=== PATIENT | male | born 1970 | race American Indian/Alaskan Native ===

== ENCOUNTER 2020-07-15 20:40 | Emergency (ER) | payer SELFPAY ==
[2020-07-15 22:00] LABS: Basophils % (Auto) 0.4 % (0.0-1.8); Eosinophils # (Auto) 0.2 K/mm3 (0.0-0.4); Eosinophils % (Auto) 2.1 % (0.0-4.3); Hematocrit 45.2 % (35.5-45.6); Hemoglobin 15.2 gm/dl (11.8-15.2); Lymphocytes # (Auto) 2.3 K/mm3 (1.2-5.4); Lymphocytes % (Auto) 21.7 % (13.4-35.0); Mean Corpuscular HGB Conc 34 % (32-34); Mean Corpuscular Volume 87 fl (84-94); Monocytes # (Auto) 0.5 K/mm3 (0.0-0.8); Monocytes % (Auto) 4.5 % (0.0-7.3); Platelet Count 197 K/mm3 (140-440); Red Blood Count 5.18 M/mm3 (3.65-5.03); Red Cell Distribution Width 13.1 % (13.2-15.2)
--- NOTE | 2020-07-15 22:13 | Emergency Department Report ---
ED Abdominal Pain HPI - General Chief Complaint: Abdominal Pain Stated Complaint: STOMACH PAIN Time Seen by Provider: 07/15/20 21:58 Source: patient, family Mode of arrival: Ambulatory Limitations: Language Barrier - History of Present Illness Initial Comments: Patient is a 50-year-old male who presents for abdominal pain 05/30 for 10 days. Pain is described as general lysed aching and burning. Patient denies history of renal stones, gall stones, Crohn's or ulcers denies smoking denies substance. Last bowel movement was normal yesterday. Last p.o. intake this afternoon without symptoms. Symptoms are exacerbated by nothing. Symptoms are relieved by nothing. MD Complaint: abdominal pain, flank pain Onset/Timin -: days(s) Location: diffuse Radiation: none Migration to: no migration Severity: moderate Severity scale (0 -10): 7 Quality: aching Consistency: constant Improves With: nothing Worsens With: nothing Associated Symptoms: denies: nausea, vomiting, diarrhea, fever, chills, constipation, dysuria, melena, anorexia - Related Data Previous Rx's Medication Instructions Recorded Last Taken Type Ondansetron [Zofran Odt] 4 mg PO Q8HR #12 tab.rapdis 07/16/20 Unknown Rx Allergies Allergy/AdvReac Type Severity Reaction Status Date / Time No Known Allergies Allergy Unverified 07/15/20 20:44 ED Review of Systems ROS: Stated complaint: STOMACH PAIN Other details as noted in HPI Constitutional: denies: chills, fever Eyes: denies: eye pain, eye discharge, vision change ENT: denies: ear pain, throat pain Respiratory: denies: cough, shortness of breath, wheezing Cardiovascular: denies: chest pain, palpitations Endocrine: no symptoms reported Gastrointestinal: abdominal pain. denies: nausea, vomiting, diarrhea, constipation, hematemesis, melena, hematochezia Genitourinary: denies: urgency, dysuria, frequency, hematuria Musculoskeletal: denies: back pain, joint swelling, arthralgia Skin: as per HPI Neurological: denies: headache, weakness, paresthesias Psychiatric: denies: anxiety, depression Hematological/Lymphatic: denies: easy bleeding, easy bruising ED Past Medical Hx - Past Medical History Previous Medical History?: No - Surgical History Past Surgical History?: No - Social History Smoking Status: Current Every Day Smoker Substance Use Type: None - Medications Home Medications: Home Medications Medication Instructions Recorded Confirmed Last Taken Type Ondansetron [Zofran Odt] 4 mg PO Q8HR #12 tab.rapdis 07/16/20 Unknown Rx ED Physical Exam - General Limitations: Language Barrier General appearance: alert, in no apparent distress - Head Head exam: Present: atraumatic, normocephalic - Eye Eye exam: Present: normal appearance, EOMI Pupils: Present: normal accommodation - ENT ENT exam: Present: mucous membranes moist - Neck Neck exam: Present: normal inspection, full ROM. Absent: tenderness - Respiratory Respiratory exam: Present: normal lung sounds bilaterally. Absent: respiratory distress, wheezes, stridor, chest wall tenderness - Cardiovascular Cardiovascular Exam: Present: regular rate, normal rhythm, normal heart sounds - GI/Abdominal GI/Abdominal exam: Present: distended, normal bowel sounds. Absent: tenderness, guarding, rebound, rigid, organomegaly, bruit, hernia - Expanded GI/Abdominal Exam Expanded GI/Abdominal exam: Absent: psoas sign, obturator sign, heel tap sign, Mireles's sign, Rovsing's sign, tenderness at Mcbur[place]'s Point, ascites - Rectal Rectal exam: Present: deferred - Extremities Exam Extremities exam: Present: normal inspection, full ROM, normal capillary refill. Absent: tenderness - Back Exam Back exam: Present: normal inspection, full ROM. Absent: tenderness, CVA tenderness (R), CVA tenderness (L), vertebral tenderness, rash noted - Neurological Exam Neurological exam: Present: alert, oriented X3, CN II-XII intact, normal gait - Psychiatric Psychiatric exam: Present: normal affect, normal mood - Skin Skin exam: Present: warm, dry, intact, normal color. Absent: rash ED Course Vital Signs 07/15/20 07/15/20 20:44 22:33 Temperature 98.4 F 98.9 F Pulse Rate 73 67 Respiratory 18 14 Rate Blood Pressure 144/78 Blood Pressure 115/73 [Left] O2 Sat by Pulse 100 100 Oximetry ED Medical Decision Making - Lab Data Result diagrams: 07/15/20 21:39 07/15/20 21:39 Labs 07/15/20 07/15/20 07/15/20 21:39 21:39 21:39 WBC 10.7 RBC 5.18 H Hgb 15.2 Hct 45.2 MCV 87 MCH 29 MCHC 34 RDW 13.1 L Plt Count 197 Lymph % (Auto) 21.7 [place] % (Auto) 4.5 Eos % (Auto) 2.1 Baso % (Auto) 0.4 Lymph # 2.3 [place] # 0.5 Eos # 0.2 Baso # 0.0 Seg Neutrophils % 71.3 H Seg Neutrophils # 7.6 Sodium 138 Potassium 4.7 Chloride 98.5 Carbon Dioxide 27 Anion Gap 17 BUN 16 Creatinine 0.9 Estimated GFR > 60 BUN/Creatinine Ratio 18 Glucose 97 Calcium 9.8 Total Bilirubin 0.20 AST 13 ALT 15 Alkaline Phosphatase 81 Total Protein 7.1 Albumin 4.3 Albumin/Globulin Ratio 1.5 Lipase 23 Urine Color Urine Turbidity Urine pH Ur Specific [place] Urine Protein Urine Glucose (UA) Urine Ketones Urine Blood Urine Nitrite Urine Bilirubin Urine Urobilinogen Ur Leukocyte Esterase Urine WBC (Auto) Urine RBC (Auto) Urine Yeast (Budding) 07/15/20 22:10 WBC RBC Hgb Hct MCV MCH MCHC RDW Plt Count Lymph % (Auto) [place] % (Auto) Eos % (Auto) Baso % (Auto) Lymph # [place] # Eos # Baso # Seg Neutrophils % Seg Neutrophils # Sodium Potassium Chloride Carbon Dioxide Anion Gap BUN Creatinine Estimated GFR BUN/Creatinine Ratio Glucose Calcium Total Bilirubin AST ALT Alkaline Phosphatase Total Protein Albumin Albumin/Globulin Ratio Lipase Urine Color Yellow Urine Turbidity Cloudy Urine pH 8.0 H Ur Specific [place] 1.015 Urine Protein <15 mg/dl Urine Glucose (UA) Neg Urine Ketones Neg Urine Blood Neg Urine Nitrite Neg Urine Bilirubin Neg Urine Urobilinogen < 2.0 Ur Leukocyte Esterase Neg Urine WBC (Auto) 6.0 Urine RBC (Auto) 9.0 Urine Yeast (Budding) 3+ - Radiology Data Radiology results: report reviewed, image reviewed Findings Reporting MD: Gale Felder Dictation Time: July 15, 2020 23:14 Postdoctoral Fellow: Not available Software Clerk Date: ABDOMEN 1 VIEW INDICATION / CLINICAL INFORMATION: Abdominal pain COMPARISON: None FINDINGS: TUBES / LINES: None. BOWEL GAS PATTERN: The bowel gas pattern appears nonobstructive. ADDITIONAL FINDINGS: Evaluation of bony structures demonstrates no evidence of acute bony abnormality. IMPRESSION: 1. No radiographic evidence of acute intra-abdominal process. Signer Name: Gale Felder MD Signed: 07/15/2020 11:14 PM Workstation Name: [id number] - Medical Decision Making KUB is normal no obstruction no soft tissue abnormality no foreign bodies no stones noted, patient is currently a/ox 3 ambulatory with steady gait, nad . Critical care attestation.: If time is entered above; I have spent that time in minutes in the direct care of this critically ill patient, excluding procedure time. ED Disposition Clinical Impression: Abdominal pain Qualifiers: Abdominal location: generalized Qualified Code(s): R10.84 - Generalized abdominal pain Disposition: TO HOME OR SELFCARE Is pt being admited?: No Does the pt Need Aspirin: No Condition: Stable Instructions: Abdominal Pain (ED) Prescriptions: Ondansetron [Zofran Odt] 4 mg PO Q8HR #12 tab.rapdis Referrals: MATTY PATIÑO MD [Referring] - 3-5 Days Forms: Work/School Release Form(ED) Time of Disposition: 00:31
[2020-07-15 22:15] LABS: Alanine Aminotransferase 15 units/L (7-56); Albumin 4.3 g/dL (3.9-5); BUN/Creatinine Ratio 18; Blood Urea Nitrogen 16 mg/dL (9-20); Calcium 9.8 mg/dL (8.4-10.2); Hemolysis Index 8
[2020-07-15 22:34] VITALS: BP 115/73
[2020-07-15 22:36] LABS: Bilirubin,Urine NEG (Negative); Blood,Urine NEG (Negative); Color,Urine Yellow (Yellow); Protein,Urine <15 mg/dL mg/dL (Negative); Urobilinogen,Urine < 2.0 mg/dL (<2.0)
[2020-07-15] MEDS ORDERED: KETOROLAC 30 MG/1 ML INJ IM ONE (23:12)
--- NOTE | 2020-07-16 00:18 | XRay Report ---
ABDOMEN 1 VIEW INDICATION / CLINICAL INFORMATION: Abdominal pain COMPARISON: None FINDINGS: TUBES / LINES: None. BOWEL GAS PATTERN: The bowel gas pattern appears nonobstructive. ADDITIONAL FINDINGS: Evaluation of bony structures demonstrates no evidence of acute bony abnormality . IMPRESSION: 1. No radiographic evidence of acute intra-abdominal process. Signer Name: Gale Felder MD Signed: 07/16/2020 12:14 AM Workstation Name: [id number]
== END 2020-07-16 00:35 | disposition home or self-care (01) ==
LOC: ED 20:40
DX: R10.9 Unspecified abdominal pain (principal); F17.200 Nicotine dependence, unspecified, uncomplicated; Z79.899 Other long term (current) drug therapy
CPT/HCPCS: 36415; 74018; 80053; 81001; 83690; 85025; 96372; 99284; J1885